=== PATIENT | male | born 1975 | race Caucasian/White ===

== ENCOUNTER 2020-11-15 10:22 | Inpatient (IN) | payer MEDICARE ==
[~2020-11-15] VITALS: Ht 167.6 cm; Wt 99.0 kg
[2020-11-15] MEDS ORDERED: SODIUM CHLORIDE 0.9% 1000ML 1,000 ML IV STA (10:50)
[2020-11-15] MEDS ORDERED: ACETAMINOPHEN 325 MG TAB PO ONE (11:00)
[2020-11-15] MEDS ORDERED: VANCOMYCIN HCL 1.5 GM in SODIUM CHLORIDE 0.9% 250ML 300 ML IV ONE (11:00)
[2020-11-15] MEDS ORDERED: PIPER-TAZ 3.375 GM 50 ML IV ONE (11:00)
[2020-11-15] MEDS ORDERED: ACETAMINOPHEN 325 MG TAB ONE (11:45)
[2020-11-15] MEDS ORDERED: ONDANSETRON HCL INJ 2MG/ML 2ML 2 MG/ML VIAL IV PRN (11:45)
[2020-11-15] MEDS ORDERED: VANCOMYCIN 1GM/NS 250 ML 250 ML ONE (11:45)
[2020-11-15] MEDS ORDERED: DIPHENHYDRAMINE HCL INJ 50 MG/ML VIAL IV PRN (11:45)
[2020-11-15] MEDS ORDERED: ENALAPRILAT IV INJ 1.25 MG/ML VIAL IV PRN (11:45)
[2020-11-15] MEDS ORDERED: SODIUM CHLORIDE 0.9% 1000ML 1,000 ML ONE (11:45)
[2020-11-15] MEDS ORDERED: SODIUM CHLORIDE 0.9% 1000ML 1,000 ML IV ONE (11:45)
[2020-11-15] MEDS ORDERED: PIPER-TAZ 3.375 GM 50 ML ONE (11:45)
[2020-11-15] MEDS ORDERED: CLONIDINE HCL 0.1 MG TAB PO PRN (11:45)
[2020-11-15] MEDS ORDERED: DEXTROSE 50% SYRINGE 50 ML IV PRN (11:45)
[2020-11-15] MEDS ORDERED: SODIUM CHLORIDE 0.9% 50ML 50 ML ONE (11:54)
[2020-11-15] MEDS ORDERED: IOPAMIDOL 370 MG/ML 200 ML INFUS..BTL INJ ONE (11:54)
[2020-11-15] MEDS: VANCOMYCIN 1GM/NS 250 ML 250 ML IV SCH (12:20)
[2020-11-15] MEDS ORDERED: BASAGLAR K100 UNIT/1 SQ (12:32)
[2020-11-15] MEDS ORDERED: GLIMEPIRIDE2 MG PO (12:32)
[2020-11-15] MEDS ORDERED: VASOTEC10 M1 PO (12:32)
[2020-11-15] MEDS ORDERED: ZETIA10 MG PO (12:32)
[2020-11-15] MEDS ORDERED: CRESTOR10 MG PO (12:32)
[2020-11-15] MEDS ORDERED: NOVOLOG100 UNIT/1 SC (12:32)
[2020-11-15 14:15] VITALS: BP 120/91
[2020-11-15 16:03] VITALS: BP 119/83
[2020-11-15] MEDS: INSULIN REGULAR, HUMAN 100 UNIT/1 ML 3ML VIAL SQ SCH ×2 (16:30→21:00)
[2020-11-15] MEDS: FAMOTIDINE 20 MG TAB PO SCH (17:28)
[2020-11-15] MEDS: PIPERACILLIN/TAZOBAC 3.375 GM in SODIUM CHLORIDE 0.9% 50ML 50 ML IV SCH (18:36)
[2020-11-15 20:00] VITALS: BP 132/85
[2020-11-15] MEDS: ACETAMINOPHEN 325 MG TAB PO PRN (20:43)
[2020-11-15] MEDS ORDERED: ZOLPIDEM TARTRATE 5 MG TAB PO PRN (21:00)
[2020-11-16] VITALS (8 sets, daily range): BP systolic 118–145; BP diastolic 66–88
[2020-11-16] MEDS: VANCOMYCIN 1GM/NS 250 ML 250 ML IV SCH ×3 (00:17→23:45)
[2020-11-16] MEDS: PIPERACILLIN/TAZOBAC 3.375 GM in SODIUM CHLORIDE 0.9% 50ML 50 ML IV SCH ×4 (01:30→19:58)
[2020-11-16] MEDS ORDERED: SODIUM CHLORIDE 0.9% 250ML 250 ML ONE (04:41)
[2020-11-16 06:27] LABS: BASOPHILS # (AUTO) 0.1 (0.0-0.1); BASOPHILS % 0.5 % (0.0-1.0); EOSINOPHILS # (AUTO) 0.1 (0.0-0.4); EOSINOPHILS % 0.5 % (0.0-6.0); HEMATOCRIT 40.4 % (38.2-49.6); HEMOGLOBIN 13.1 g/dL (14.0-18.0); LYMPHOCYTES # (AUTO) 3.4 (1.0-3.2); LYMPHOCYTES % 14.2 % (18.0-39.1); MEAN CORPUSCULAR HEMOGLOBIN 29.3 pg (28-32); MEAN CORPUSCULAR HGB CONC 32.4 g/dL (31-35); MEAN CORPUSCULAR VOLUME 90.4 fL (81-99); MONOCYTES # (AUTO) 2.4 (0.2-0.8); MONOCYTES % 9.7 % (4.4-11.3); NEUTROPHILS % 74.2 % (38.7-80.0); PLATELET COUNT 314 x10e3/uL (140-360); RED BLOOD COUNT 4.47 x10e6/uL (4.3-5.7); RED CELL DISTRIBUTION WIDTH 13.6 % (11.7-14.4)
[2020-11-16 06:36] LABS: ANION GAP 12.7 mmol/L (8-16); BLOOD UREA NITROGEN 10 mg/dL (7-26); BUN/CREATININE RATIO 13 (6-25); CALCIUM 8.7 mg/dL (8.4-10.2); CARBON DIOXIDE 29 mmol/L (22-29); CHLORIDE 102 mmol/L (98-107); CREATININE, SERUM 0.75 mg/dL (0.72-1.25); EST GLOMERULAR FILTRATION RATE > 60 ML/MIN (60-); GLUCOSE 149 mg/dL (74-118); POTASSIUM 3.7 mmol/L (3.5-5.1); SODIUM 140 mmol/L (136-145)
[2020-11-16] MEDS: FAMOTIDINE 20 MG TAB PO SCH ×2 (07:30→16:30)
[2020-11-16 07:45] LABS: EOSINOPHILS % (MANUAL) 1 % (0-7); LYMPHOCYTES % (MANUAL) 13 % (19-48); MONOCYTES % (MANUAL) 12 % (3.4-9.0); NEUTROPHILS % (MANUAL) 73 % (40-74); PLATELET ESTIMATE ADEQUATE; PLATELET MORPHOLOGY COMMENT NORMAL; RBC MORPHOLOGY COMMENT NORMAL
[2020-11-16] MEDS: ACETAMINOPHEN 325 MG TAB PO PRN (09:18)
[2020-11-16] MEDS ORDERED: DEXTROSE 50% SYRINGE 50 ML IV PRN (09:45)
[2020-11-16] MEDS: INSULIN LISPRO 100 UNIT/1 ML 3ML VIAL SQ SCH ×5 (11:30→21:00)
[2020-11-16] MEDS ORDERED: BUPIVACAINE 0.5%/EPI 30 ML SDV INJ ONE (13:12)
[2020-11-16] MEDS ORDERED: MORPHINE SULFATE INJ 4 MG/ML INJ 1ML IV PRN (14:00)
[2020-11-16] MEDS ORDERED: MIDAZOLAM HCL 2 MG/2 ML VIAL ONE (16:24)
[2020-11-16] MEDS ORDERED: FENTANYL CITRATE/PF 100MCG/2 ML INJ ONE (16:24)
[2020-11-16] MEDS ORDERED: LIDOCAINE HCL 2% LOCAL INJ 5 ML SDV VIAL INJ ONE (17:45)
[2020-11-16] MEDS ORDERED: LIDOCAINE HCL 2% JELLY 5 ML TUBE ONE (17:45)
[2020-11-16] MEDS ORDERED: SEVOFLURANE INHAL SOLN 250 ML PEN BTL ONE (17:45)
[2020-11-16] MEDS ORDERED: ONDANSETRON HCL INJ 2MG/ML 2ML 2 MG/ML VIAL ONE (17:45)
[2020-11-16] MEDS ORDERED: PROPOFOL IV EMULSION 10 MG/ML 20 ML VIAL ONE (17:45)
[2020-11-16] MEDS ORDERED: POVIDONE IODINE 0.05% 0.05 % ML PO ONE (17:45)
[2020-11-16] MEDS: SIMVASTATIN 40 MG TAB PO SCH (21:00)
[2020-11-16] MEDS: INSULIN GLARGINE 100 UNITS/ML VIAL SQ SCH (21:00)
[2020-11-16] MEDS ORDERED: INSULIN GLARGINE HUM REC ANLOG U SQ SCH (21:00)
[2020-11-17] VITALS (8 sets, daily range): BP systolic 92–140; BP diastolic 57–96
[2020-11-17] MEDS: PIPERACILLIN/TAZOBAC 3.375 GM in SODIUM CHLORIDE 0.9% 50ML 50 ML IV SCH ×5 (05:14→17:47)
[2020-11-17 06:06] LABS: BASOPHILS # (AUTO) 0.1 (0.0-0.1); BASOPHILS % 0.3 % (0.0-1.0); EOSINOPHILS # (AUTO) 0.1 (0.0-0.4); EOSINOPHILS % 0.5 % (0.0-6.0); HEMATOCRIT 41.6 % (38.2-49.6); HEMOGLOBIN 13.3 g/dL (14.0-18.0); LYMPHOCYTES # (AUTO) 4.1 (1.0-3.2); MEAN CORPUSCULAR HEMOGLOBIN 28.6 pg (28-32); MEAN CORPUSCULAR VOLUME 89.5 fL (81-99); MONOCYTES # (AUTO) 2.1 (0.2-0.8); MONOCYTES % 9.2 % (4.4-11.3); NEUTROPHILS # (AUTO) 16.3 (2.1-6.9); NEUTROPHILS % 71.3 % (38.7-80.0); PLATELET COUNT 327 x10e3/uL (140-360); RED BLOOD COUNT 4.65 x10e6/uL (4.3-5.7); RED CELL DISTRIBUTION WIDTH 13.2 % (11.7-14.4)
[2020-11-17 06:22] LABS: ANION GAP 13.4 mmol/L (8-16); BLOOD UREA NITROGEN 9 mg/dL (7-26); BUN/CREATININE RATIO 14 (6-25); CALCIUM 8.9 mg/dL (8.4-10.2); CARBON DIOXIDE 29 mmol/L (22-29); CHLORIDE 101 mmol/L (98-107); CREATININE, SERUM 0.65 mg/dL (0.72-1.25); EST GLOMERULAR FILTRATION RATE > 60 ML/MIN (60-); GLUCOSE 133 mg/dL (74-118); POTASSIUM 3.4 mmol/L (3.5-5.1); SODIUM 140 mmol/L (136-145)
[2020-11-17] MEDS: INSULIN LISPRO 100 UNIT/1 ML 3ML VIAL SQ SCH ×7 (07:30→20:45)
[2020-11-17] MEDS: EZETIMIBE 10 MG TAB PO SCH (08:14)
[2020-11-17] MEDS: ENALAPRIL MALEATE 10 MG TAB PO SCH (08:14)
[2020-11-17] MEDS: FAMOTIDINE 20 MG TAB PO SCH ×2 (08:15→15:30)
[2020-11-17] MEDS: HYDROCODONE/APAP 7.5MG-325MG 1 EA TAB PO PRN (08:18)
[2020-11-17] MEDS ORDERED: POTASSIUM CHLORIDE 10MEQ EA PO ONE (10:00)
[2020-11-17] MEDS ORDERED: ONDANSETRON HCL 4 MG ORAL DISINTEGRATING TAB PO PRN (10:00)
[2020-11-17] MEDS: VANCOMYCIN 1GM/NS 250 ML 250 ML IV SCH ×2 (11:19→23:32)
[2020-11-17] MEDS: SIMVASTATIN 40 MG TAB PO SCH (20:34)
[2020-11-17] MEDS: ACETAMINOPHEN 325 MG TAB PO PRN (20:35)
[2020-11-17] MEDS: INSULIN GLARGINE 100 UNITS/ML VIAL SQ SCH (20:45)
[2020-11-18] VITALS (8 sets, daily range): BP systolic 97–128; BP diastolic 68–86
[2020-11-18] MEDS: HYDROCODONE/APAP 7.5MG-325MG 1 EA TAB PO PRN (04:30)
[2020-11-18] MEDS: PIPERACILLIN/TAZOBAC 3.375 GM in SODIUM CHLORIDE 0.9% 50ML 50 ML IV SCH ×6 (05:14→23:05)
[2020-11-18 05:16] LABS: BASOPHILS # (AUTO) 0.1 (0.0-0.1); BASOPHILS % 0.4 % (0.0-1.0); EOSINOPHILS # (AUTO) 0.2 (0.0-0.4); EOSINOPHILS % 1.3 % (0.0-6.0); HEMATOCRIT 39.8 % (38.2-49.6); HEMOGLOBIN 12.9 g/dL (14.0-18.0); LYMPHOCYTES # (AUTO) 3.5 (1.0-3.2); LYMPHOCYTES % 19.1 % (18.0-39.1); MEAN CORPUSCULAR HEMOGLOBIN 29.1 pg (28-32); MEAN CORPUSCULAR HGB CONC 32.4 g/dL (31-35); MEAN CORPUSCULAR VOLUME 89.8 fL (81-99); MONOCYTES # (AUTO) 1.4 (0.2-0.8); MONOCYTES % 7.8 % (4.4-11.3); NEUTROPHILS # (AUTO) 12.9 (2.1-6.9); NEUTROPHILS % 70.7 % (38.7-80.0); PLATELET COUNT 354 x10e3/uL (140-360); RED BLOOD COUNT 4.43 x10e6/uL (4.3-5.7); RED CELL DISTRIBUTION WIDTH 13.3 % (11.7-14.4)
[2020-11-18 05:54] LABS: ANION GAP 14.6 mmol/L (8-16); BLOOD UREA NITROGEN 15 mg/dL (7-26); BUN/CREATININE RATIO 22 (6-25); CALCIUM 8.6 mg/dL (8.4-10.2); CARBON DIOXIDE 29 mmol/L (22-29); CHLORIDE 102 mmol/L (98-107); CREATININE, SERUM 0.69 mg/dL (0.72-1.25); EST GLOMERULAR FILTRATION RATE > 60 ML/MIN (60-); GLUCOSE 126 mg/dL (74-118); POTASSIUM 3.6 mmol/L (3.5-5.1); SODIUM 142 mmol/L (136-145)
[2020-11-18] MEDS: INSULIN LISPRO 100 UNIT/1 ML 3ML VIAL SQ SCH ×7 (07:30→21:00)
[2020-11-18] MEDS: EZETIMIBE 10 MG TAB PO SCH (08:29)
[2020-11-18] MEDS: FAMOTIDINE 20 MG TAB PO SCH ×2 (08:29→16:39)
[2020-11-18] MEDS: ENALAPRIL MALEATE 10 MG TAB PO SCH (08:30)
[2020-11-18] MEDS: VANCOMYCIN 1GM/NS 250 ML 250 ML IV SCH ×2 (12:41→23:51)
[2020-11-18] MEDS: INSULIN GLARGINE 100 UNITS/ML VIAL SQ SCH (21:00)
[2020-11-18] MEDS: SIMVASTATIN 40 MG TAB PO SCH (21:00)
[2020-11-19] VITALS (8 sets, daily range): BP systolic 102–122; BP diastolic 66–95
[2020-11-19] MEDS: HYDROCODONE/APAP 7.5MG-325MG 1 EA TAB PO PRN (03:02)
[2020-11-19 05:12] LABS: BASOPHILS # (AUTO) 0.1 (0.0-0.1); BASOPHILS % 0.5 % (0.0-1.0); EOSINOPHILS # (AUTO) 0.4 (0.0-0.4); HEMATOCRIT 38.1 % (38.2-49.6); HEMOGLOBIN 12.4 g/dL (14.0-18.0); LYMPHOCYTES # (AUTO) 4.9 (1.0-3.2); LYMPHOCYTES % 28.1 % (18.0-39.1); MEAN CORPUSCULAR HGB CONC 32.5 g/dL (31-35); MONOCYTES # (AUTO) 1.4 (0.2-0.8); NEUTROPHILS # (AUTO) 10.5 (2.1-6.9); NEUTROPHILS % 60.2 % (38.7-80.0); PLATELET COUNT 367 x10e3/uL (140-360); RED BLOOD COUNT 4.28 x10e6/uL (4.3-5.7); RED CELL DISTRIBUTION WIDTH 13.2 % (11.7-14.4)
[2020-11-19] MEDS: PIPERACILLIN/TAZOBAC 3.375 GM in SODIUM CHLORIDE 0.9% 50ML 50 ML IV SCH (06:12)
[2020-11-19] MEDS: FAMOTIDINE 20 MG TAB PO SCH ×2 (06:15→16:27)
[2020-11-19] MEDS: INSULIN LISPRO 100 UNIT/1 ML 3ML VIAL SQ SCH ×7 (07:30→22:00)
[2020-11-19] MEDS: EZETIMIBE 10 MG TAB PO SCH (08:26)
[2020-11-19] MEDS: ENALAPRIL MALEATE 10 MG TAB PO SCH (08:27)
[2020-11-19] MEDS ORDERED: CEFAZOLIN SOD 1 GM VIAL IV SCH (09:45)
[2020-11-19] MEDS: CEFAZOLIN SOD 2 GM/NS 50ML 50 ML IV SCH ×2 (12:05→22:00)
[2020-11-19] MEDS: INSULIN GLARGINE 100 UNITS/ML VIAL SQ SCH (22:00)
[2020-11-19] MEDS: SIMVASTATIN 40 MG TAB PO SCH (22:00)
[2020-11-20] VITALS (8 sets, daily range): BP systolic 108–131; BP diastolic 77–87
[2020-11-20 05:54] LABS: BASOPHILS # (AUTO) 0.1 (0.0-0.1); BASOPHILS % 0.7 % (0.0-1.0); EOSINOPHILS # (AUTO) 0.3 (0.0-0.4); HEMATOCRIT 41.1 % (38.2-49.6); HEMOGLOBIN 13.3 g/dL (14.0-18.0); LYMPHOCYTES # (AUTO) 4.4 (1.0-3.2); LYMPHOCYTES % 29.2 % (18.0-39.1); MEAN CORPUSCULAR HEMOGLOBIN 28.8 pg (28-32); MEAN CORPUSCULAR HGB CONC 32.4 g/dL (31-35); NEUTROPHILS # (AUTO) 8.8 (2.1-6.9); PLATELET COUNT 401 x10e3/uL (140-360); RED BLOOD COUNT 4.62 x10e6/uL (4.3-5.7); RED CELL DISTRIBUTION WIDTH 13.3 % (11.7-14.4)
[2020-11-20] MEDS: CEFAZOLIN SOD 2 GM/NS 50ML 50 ML IV SCH ×2 (06:15→14:38)
[2020-11-20] MEDS: FAMOTIDINE 20 MG TAB PO SCH ×2 (06:15→16:45)
[2020-11-20 06:18] LABS: ANION GAP 13.6 mmol/L (8-16); BLOOD UREA NITROGEN 9 mg/dL (7-26); BUN/CREATININE RATIO 14 (6-25); CALCIUM 9.3 mg/dL (8.4-10.2); CARBON DIOXIDE 32 mmol/L (22-29); CHLORIDE 100 mmol/L (98-107); CREATININE, SERUM 0.66 mg/dL (0.72-1.25); EST GLOMERULAR FILTRATION RATE > 60 ML/MIN (60-); GLUCOSE 107 mg/dL (74-118); POTASSIUM 3.6 mmol/L (3.5-5.1); SODIUM 142 mmol/L (136-145)
[2020-11-20] MEDS: INSULIN LISPRO 100 UNIT/1 ML 3ML VIAL SQ SCH ×7 (07:30→21:48)
[2020-11-20] MEDS: ENALAPRIL MALEATE 10 MG TAB PO SCH (08:58)
[2020-11-20] MEDS: EZETIMIBE 10 MG TAB PO SCH (08:58)
[2020-11-20] MEDS: INSULIN GLARGINE 100 UNITS/ML VIAL SQ SCH (21:49)
[2020-11-20] MEDS: SIMVASTATIN 40 MG TAB PO SCH (21:57)
[2020-11-21] VITALS (9 sets, daily range): BP systolic 110–124; BP diastolic 72–90
[2020-11-21] MEDS: INSULIN LISPRO 100 UNIT/1 ML 3ML VIAL SQ SCH ×7 (07:30→21:13)
[2020-11-21] MEDS: ENALAPRIL MALEATE 10 MG TAB PO SCH (08:56)
[2020-11-21] MEDS: FAMOTIDINE 20 MG TAB PO SCH ×2 (08:56→17:35)
[2020-11-21] MEDS: EZETIMIBE 10 MG TAB PO SCH (08:57)
[2020-11-21] MEDS ORDERED: CEFAZOLIN SOD 1 GM VIAL IV SCH (10:15)
[2020-11-21] MEDS: SODIUM CHLORIDE 0.9% IV SCH ×2 (11:39→18:06)
[2020-11-21] MEDS: CEFAZOLIN SOD IV SCH ×2 (11:39→18:06)
[2020-11-21] MEDS: HYDROCODONE/APAP 7.5MG-325MG 1 EA TAB PO PRN (11:46)
[2020-11-21] MEDS: SIMVASTATIN 40 MG TAB PO SCH (21:13)
[2020-11-21] MEDS: INSULIN GLARGINE 100 UNITS/ML VIAL SQ SCH (21:13)
[2020-11-22] VITALS (7 sets, daily range): BP systolic 112–130; BP diastolic 81–90
[2020-11-22] MEDS: SODIUM CHLORIDE 0.9% IV SCH ×3 (01:52→17:05)
[2020-11-22] MEDS: CEFAZOLIN SOD IV SCH ×3 (01:52→17:05)
[2020-11-22] MEDS: HYDROCODONE/APAP 7.5MG-325MG 1 EA TAB PO PRN (02:10)
[2020-11-22] MEDS: INSULIN LISPRO 100 UNIT/1 ML 3ML VIAL SQ SCH ×7 (07:30→21:32)
[2020-11-22 07:59] LABS: BASOPHILS # (AUTO) 0.1 (0.0-0.1); BASOPHILS % 0.5 % (0.0-1.0); EOSINOPHILS # (AUTO) 0.3 (0.0-0.4); EOSINOPHILS % 2.3 % (0.0-6.0); HEMATOCRIT 42.8 % (38.2-49.6); HEMOGLOBIN 13.6 g/dL (14.0-18.0); LYMPHOCYTES # (AUTO) 4.7 (1.0-3.2); LYMPHOCYTES % 36.4 % (18.0-39.1); MEAN CORPUSCULAR HEMOGLOBIN 28.9 pg (28-32); MEAN CORPUSCULAR HGB CONC 31.8 g/dL (31-35); MEAN CORPUSCULAR VOLUME 90.9 fL (81-99); MONOCYTES % 7.7 % (4.4-11.3); NEUTROPHILS # (AUTO) 6.4 (2.1-6.9); NEUTROPHILS % 49.7 % (38.7-80.0); PLATELET COUNT 397 x10e3/uL (140-360); RED BLOOD COUNT 4.71 x10e6/uL (4.3-5.7); RED CELL DISTRIBUTION WIDTH 13.2 % (11.7-14.4)
[2020-11-22 08:18] LABS: ANION GAP 12.3 mmol/L (8-16); BLOOD UREA NITROGEN 13 mg/dL (7-26); BUN/CREATININE RATIO 18 (6-25); CARBON DIOXIDE 30 mmol/L (22-29); CHLORIDE 102 mmol/L (98-107); CREATININE, SERUM 0.71 mg/dL (0.72-1.25); EST GLOMERULAR FILTRATION RATE > 60 ML/MIN (60-); GLUCOSE 118 mg/dL (74-118); POTASSIUM 4.3 mmol/L (3.5-5.1); SODIUM 140 mmol/L (136-145)
[2020-11-22] MEDS: EZETIMIBE 10 MG TAB PO SCH (09:30)
[2020-11-22] MEDS: ENALAPRIL MALEATE 10 MG TAB PO SCH (09:30)
[2020-11-22] MEDS: FAMOTIDINE 20 MG TAB PO SCH ×2 (09:30→17:05)
[2020-11-22] MEDS: SIMVASTATIN 40 MG TAB PO SCH (21:30)
[2020-11-22] MEDS: INSULIN GLARGINE 100 UNITS/ML VIAL SQ SCH (21:32)
[2020-11-23] VITALS (8 sets, daily range): BP systolic 117–121; BP diastolic 79–91
[2020-11-23] MEDS: CEFAZOLIN SOD IV SCH ×3 (02:17→17:28)
[2020-11-23] MEDS: SODIUM CHLORIDE 0.9% IV SCH ×3 (02:17→17:28)
[2020-11-23] MEDS: INSULIN LISPRO 100 UNIT/1 ML 3ML VIAL SQ SCH ×7 (07:30→20:48)
[2020-11-23] MEDS: ENALAPRIL MALEATE 10 MG TAB PO SCH (09:12)
[2020-11-23] MEDS: FAMOTIDINE 20 MG TAB PO SCH ×2 (09:12→17:28)
[2020-11-23] MEDS: EZETIMIBE 10 MG TAB PO SCH (09:12)
[2020-11-23] MEDS: SIMVASTATIN 40 MG TAB PO SCH (20:46)
[2020-11-23] MEDS: INSULIN GLARGINE 100 UNITS/ML VIAL SQ SCH (20:48)
[2020-11-24] VITALS: BP 135/79
[2020-11-24] MEDS: SODIUM CHLORIDE 0.9% IV SCH ×3 (01:24→17:03)
[2020-11-24] MEDS: CEFAZOLIN SOD IV SCH ×3 (01:24→17:03)
[2020-11-24 04:00] VITALS: BP 112/75
[2020-11-24] MEDS: INSULIN LISPRO 100 UNIT/1 ML 3ML VIAL SQ SCH ×6 (07:30→16:45)
[2020-11-24 07:44] VITALS: BP 115/89
[2020-11-24] MEDS: FAMOTIDINE 20 MG TAB PO SCH ×2 (08:20→15:10)
[2020-11-24] MEDS: EZETIMIBE 10 MG TAB PO SCH (08:21)
[2020-11-24] MEDS: ENALAPRIL MALEATE 10 MG TAB PO SCH (08:21)
[2020-11-24 09:02] VITALS: BP 115/89
[2020-11-24 11:45] VITALS: BP 116/88
[2020-11-24 16:05] VITALS: BP 126/94
[2020-11-24] MEDS ORDERED: SIMVASTATIN 20 MG TAB PO SCH (21:00)
== END 2020-11-24 18:23 | disposition home health service (06) | DRG 854 ==
LOC: FSED 10:33 → ERHOLD 11:39 → MED/SURG3 13:57
PROVIDERS: ADMIT Internal Medicine; ATTEND Internal Medicine
PROC: 0J900ZZ Drainage of Scalp Subcutaneous Tissue and Fascia, Open Approach (ICD-10-PCS; principal; 2020-11-16 13:16)
DX: A41.9 Sepsis, unspecified organism (principal); L02.811 Cutaneous abscess of head [any part, except face]; E11.9 Type 2 diabetes mellitus without complications; B95.61 Methicillin susceptible Staphylococcus aureus infection as the cause of diseases classified elsewhere; E66.9 Obesity, unspecified; Z68.35 Body mass index [BMI] 35.0-35.9, adult; I10 Essential (primary) hypertension; E78.5 Hyperlipidemia, unspecified; Z20.822 Contact with and (suspected) exposure to COVID-19; Z79.4 Long term (current) use of insulin
CPT/HCPCS: 36415; 36569; 70491; 71045; 80048; 80076; 80202; 81003; 82948; 83036; 83605; 85025; 87040; 87071; 87075; 87186; 87205; 96372; 99284; J0690; J1815; J2001; J2250; J2270; J2405; J2543; J3010; J3370; J7030; J7050; Q9967; U0002